=== PATIENT | male | born 1955 | race Caucasian/White ===

== ENCOUNTER 2018-10-02 11:17 | Emergency (ER) | payer OTHER ==
[2018-10-02 11:47] LABS: PLATELET COUNT 190 10^3/uL (150-400)
--- NOTE | 2018-10-02 13:06 | EDPHY ---
H & P Stated Complaint: cp since this morning Time Seen by Provider: 10/02/18 12:48 HPI/ROS: CHIEF COMPLAINT: Chest pain, left arm numbness HISTORY OF PRESENT ILLNESS: The patient presents to the ED after he developed chest pain left arm numbness shortly after waking up today. The patient states the symptoms lasted several minutes then resolved. The patient denies any history of exertional chest pain or shortness of breath. The patient denies any pleuritic chest pain. He denies asymmetric calf pain or swelling. The patient has no risk factors for coronary artery disease. The patient does exercise riding a exercise bicycle and running on a treadmill without symptoms of chest pain or shortness of breath. Patient does not smoke. There is no family history of coronary artery disease. REVIEW OF SYSTEMS: A comprehensive 10 point review of systems is otherwise negative aside from elements mentioned in the history of present illness. Source: Patient Exam Limitations: No limitations - Personal History Current Tetanus Diphtheria and Acellular Pertussis (TDAP): No - Medical/Surgical History Hx Asthma: No Hx Chronic Respiratory Disease: No Hx Diabetes: No Hx Cardiac Disease: No Hx Renal Disease: No Hx Cirrhosis: No Hx Alcoholism: No Hx HIV/AIDS: No Hx Splenectomy or Spleen Trauma: No Other PMH: denies - Social History Smoking Status: Never smoked - Physical Exam Exam: General Appearance: Alert, no distress Eyes: Pupils equal and round no pallor or injection ENT, Mouth: Mucous membranes moist Respiratory: There are no retractions, lungs are clear to auscultation Cardiovascular: Regular rate and rhythm Gastrointestinal: Abdomen is soft and nontender, no masses, bowel sounds normal Neurological: A&O, normal motor function, normal sensory exam, normal cranial nerves Skin: Warm and dry, no rashes Musculoskeletal: Neck is supple nontender Extremities: symmetrical, full range of motion Psychiatric: Patient is oriented X 3, there is no agitation Constitutional: Initial Vital Signs Temperature (C) 36.5 C 10/02/18 11:18 Heart Rate 75 10/02/18 11:18 Respiratory Rate 18 10/02/18 11:18 Blood Pressure 173/89 H 10/02/18 11:18 O2 Sat (%) 94 10/02/18 11:18 O2 Delivery Mode Room Air Allergies/Adverse Reactions: No Known Allergies Allergy (Unverified 10/02/18 11:18) Home Medications: Medication Instructions Recorded NK [No Known Home Meds] 10/02/18 Medical Decision Making - Diagnostics EKG Interpretation: EKG: Complete interpretation has been separately recorded in the [facility] archive. Summary impression: sinus rhythm, rate 71, no ST segment elevation or depression Imaging Results: Imaging Impressions Chest X-Ray 10/02/18 11:39 Impression: Posterior pneumonia, likely on the left side. ED Course/Re-evaluation: The patient presents the ED after an episode of atypical chest pain that began this morning. Patient's initial EKG demonstrates no evidence of ischemia. A 4 hr troponin is negative. There is nothing on his history and physical exam to suggest pulmonary embolism as his symptoms have resolved. The patient has no evidence of a stroke nor does he have risk factors for dissection of the carotid artery. The patient is noted to be neurologically intact. He has a heart score of 1. The patient will be referred to Cardiology for an outpatient stress test. The patient is discharged home with customary aftercare instructions and return precautions. The radiology impression was a possible left posterior pneumonia however the patient has no symptoms suggestive of pneumonia. Differential Diagnosis: Differential diagnosis considered includes acute coronary syndrome, cervical radiculopathy, neurapraxia, pneumothorax - Data Points Laboratory Results: Laboratory Results 10/02/18 11:35 10/02/18 11:35 10/02/18 10/02/18 10/02/18 11:39 11:35 11:35 WBC 7.77 10^3/uL 10^3/uL (3.80-9.50) RBC 4.74 10^6/uL 10^6/uL (4.40-6.38) Hgb 16.0 g/dL g/dL (13.7-17.5) Hct 46.9 % % (40.0-51.0) MCV 98.9 fL fL (81.5-99.8) MCH 33.8 pg pg (27.9-34.1) MCHC 34.1 g/dL g/dL (32.4-36.7) RDW 12.2 % % (11.5-15.2) Plt Count 190 10^3/uL 10^3/uL (150-400) MPV 10.1 fL fL (8.7-11.7) Neut % (Auto) 73.4 % % (39.3-74.2) Lymph % (Auto) 17.0 % % (15.0-45.0) [place] % (Auto) 8.2 % % (4.5-13.0) Eos % (Auto) 0.5 % L % (0.6-7.6) Baso % (Auto) 0.5 % % (0.3-1.7) Nucleat RBC Rel Count 0.0 % % (0.0-0.2) Absolute Neuts (auto) 5.70 10^3/uL 10^3/uL (1.70-6.50) Absolute Lymphs (auto) 1.32 10^3/uL 10^3/uL (1.00-3.00) Absolute Monos (auto) 0.64 10^3/uL 10^3/uL (0.30-0.80) Absolute Eos (auto) 0.04 10^3/uL 10^3/uL (0.03-0.40) Absolute Basos (auto) 0.04 10^3/uL 10^3/uL (0.02-0.10) Absolute Nucleated RBC 0.00 10^3/uL 10^3/uL (0-0.01) Immature Gran % 0.4 % % (0.0-1.1) Immature Gran # 0.03 10^3/uL 10^3/uL (0.00-0.10) Sodium 137 mEq/L mEq/L (135-145) Potassium 4.3 mEq/L mEq/L (3.5-5.2) Chloride 107 mEq/L mEq/L (97-110) Carbon Dioxide 26 mEq/l mEq/l (22-31) Anion Gap 4 mEq/L L mEq/L (6-14) BUN 20 mg/dL mg/dL (7-23) Creatinine 0.9 mg/dL mg/dL (0.7-1.3) Estimated GFR > 60 Glucose 95 mg/dL mg/dL (70-100) Calcium 9.3 mg/dL mg/dL (8.5-10.4) POC Troponin I 0.00 ng/mL ng/mL (0.00-0.08) Point of Care Test Results: Chemistry 10/02/18 11:39 POC Troponin I 0.00 ng/mL ng/mL (0.00-0.08) Departure - Departure Disposition: [facility] Inpatient Acute Clinical Impression: Chest pain Condition: Good Instructions: Chest Pain (ED) Additional Instructions: 1. Based upon the testing done in the Emergency Department today we see no evidence of a heart attack. 2. We are unable to fully exclude coronary artery disease based upon the testing available in the Emergency Department. 3. For this reason, we would like you to be seen by cardiology for consideration of additional testing within the next 3 days. 4. Please contact the [facility] [employer] specialist you have been referred to schedule this appointment as soon as possible. Their offices are typically open from 8:30am- 5pm M-F. Dr. Gibbons is our on-call [employer] [facility]. 5. Please return to the Emergency Department immediately for any recurrent chest pain, difficulty breathing or other concerns. 6. You have been given the contact number for Dr. Nelia Glass a primary care provider who would be happy to see you in follow-up. Referrals: Asya Gibbons MD [Medical Doctor] - As per Instructions Nelia Glass MD [Medical Doctor] - As per Instructions
--- NOTE | 2018-10-02 13:19 | CPEKG ---
Test Reason : OPEN Blood Pressure : / mmHG Vent. Rate : 071 BPM Atrial Rate : 072 BPM P-R Int : 165 ms QRS Dur : 097 ms QT Int : 421 ms P-R-T Axes : 044 -16 047 degrees QTc Int : 458 ms Sinus rhythm Probable left atrial enlargement Borderline left axis deviation Confirmed by Mic Winter ([id number]) on 10/02/2018 1:19:24 PM Referred By: PHYSICIAN ED Confirmed By:Mic Winter
[2018-10-02 13:37] VITALS: BP 160/69
== END 2018-10-02 13:36 | disposition still patient (30) ==
DX: R07.9 Chest pain, unspecified (principal); R20.0 Anesthesia of skin
CPT/HCPCS: 84484-ER